=== PATIENT | female | born 1965 | race Caucasian/White ===

== ENCOUNTER 2023-12-27 17:57 | Emergency (ER) | payer SELFPAY ==
[2023-12-27 17:59] VITALS: BP 163/101
[2023-12-27 18:35] VITALS: BMI 29.9
--- NOTE | 2023-12-27 18:41 | EDRN ---
Johanna Leone SENIOR SECURITY ANALYST in room w/ pt at this time.
--- NOTE | 2023-12-27 18:46 | ED.MUSCINJ ---
HPI-Injury
General
Chief Complaint: Musculo-Skeletal Complaint
Source: patient
Exam Limitations: none
Time Seen by Provider: 12/27/23 18:27
Nursing documentation reviewed up to this point in time: agreed with
History of Present Illness-Injury
Is this injury a work related problem?: No
Is pt an associate of [facility]/[employer]?: No
Initial Injury comments:
Accidentally shut car door on her right distal thumb COmplains of pain to right thumb. Injury occurred just STAMPING OPERATOR
Past History
Past History
ED Past Medical History: None
Review of Systems
Review of Systems
Allergies reviewed?: Yes
All Other Systems: ROS reviewed and negative except as documented in HPI and ROS
Constitutional: Reports no symptoms
Musculoskeletal: Reports joint pain (pain to right thumb)
Skin: Reports no symptoms
Neurological: Reports no symptoms
Psychiatric: Reports no symptoms
Musculoskeletal Injury Exam
Musculoskeletal Injury Exam
Right Thumb:
Pain with Movement?: Moderate
Tender to palpation?: Moderate
Soft tissue swelling?: Mild
External deformity and angulation?: None
Joint effusion?: None
Contusion?: Moderate
Hematoma-local bleeding into tissue?: Mild
Strain- Sprain- Tear (Connective tissue injury)?: None
Crepitus with movement?: No
Joint instability?: No
Malalignment/deformity?: No
Range of motion: Limited
Distal skin color and temperature: normal-warm & good color
Capillary Refill: normal
Normal distal neurovascular exam?: Yes
Phy Exam
General Physical Exam
General Presentation: well appearing and mild distress
General age: appears stated age
General Skin: warm and dry
General Habitus: normal
General Mental: alert
Musculoskeletal Exam
Musculoskeletal Exam: neuro vasc intact and other (No evidence of tendon injury. No subungal hematoma)
Skin Exam
Skin Exam: normal color and warm/dry
Psychiatric Exam
Psychiatric Exam: normal mood/affect
Injury Course
Orders/Labs/Results
Orders:
Orders
12/27/23 18:02
Finger(s)/Thumb 2 View Rt [CR Finger(s)/thumb Min 2 Vw Rt] Urgent
Comment:
Reason For Exam: pain, injury
Indicate Which Finger:: Thumb
12/27/23 18:46
Thumb Spica Right-Treatment ONCE
Ibuprofen [Motrin] 600 mg PO NOW STA
*Radiology
Radiology exam reviewed: preliminary read by ED provider (No fracture)
*Critical Care Note
Total Time (30-74mins, 75-104mins- exclusive of procedures): Not Applicable
ED Attending Note
-
Portions of this chart may have been created with voice recognition software.� Occasional wrong word or��sound alike� substitutions may have occurred due to the inherent limitations of voice recognition software.
Discharge Plan
Departure
Patient Disposition: Home (Routine Discharge)
Date of Disposition: 12/27/23
Time of Disposition: 18:44
Patient with high blood pressure during this ER visit?: No
Condition: Good
Covid-19: Not Applicable
Discharge Problem:
Contusion of thumb
Instructions: Contusion (DC), Ibuprofen, Using Cold for Pain
Prescriptions:
No Action
multivitamin [Daily Vitamin] Tablet
1 tab PO DAILY
montelukast 10 mg Tablet
10 mg PO DAILY
albuterol sulfate 90 mcg/actuation Hfa Aerosol Inhaler
2 puff INHALATION QID PRN (Reason: asthma)
loratadine [Claritin] 10 mg Tablet
10 mg PO DAILY
calcium carbonate [Tums] 200 mg calcium (500 mg) Tablet,Chewable
200 mg PO QID PRN (Reason: gerd)
Referrals:
UNKNOWN - PT DOES,NOT KNOW [Family Provider] -
Activity Restrictions/Additional Instructions:
Follow up with your family doctor.
Interventions
Interventions:
*Risk Screen - Suicide Last Done: 12/27/23 17:59
*General Assessment Last Done: 12/27/23 18:32
*Neglect/Abuse Screening Last Done: 12/27/23 18:32
ED- Fall Risk Assessment Last Done: 12/27/23 18:34
*ED COVID-19 Vaccine History Last Done: 12/27/23 18:32
ED-Musculoskeletal Assessment Last Done: 12/27/23 18:34
Discharge Date and Time
Print Language: WOLOF
[2023-12-27] MEDS: MOTRIN 600 MG PO (18:56)
[2023-12-27 19:03] VITALS: BP 167/109
== END 2023-12-27 19:08 | disposition home or self-care (01) ==
LOC: EMR 17:57
PROVIDERS: EMERGENCY PHYSICIAN Emergency Medicine
DX: S60.011A Contusion of right thumb without damage to nail, initial encounter (principal); W23.0XXA Caught, crushed, jammed, or pinched between moving objects, initial encounter
CPT/HCPCS: 99283; 73140

== ENCOUNTER → 2024-02-25 18:20 | Outpatient (REF) | payer OTHER, SELFPAY | LOC: WDC 18:20 | PROVIDERS: ATTENDING PHYSICIAN Student in an Organized Health Care Education/Training Program; FAMILY PHYSICIAN Physician Assistant Medical | DX: Z12.31 Encounter for screening mammogram for malignant neoplasm of breast (principal) | CPT/HCPCS: 77063; 77067 ==